=== PATIENT | male | born 1975 | race Caucasian/White ===

== ENCOUNTER 2025-02-09 13:24 | Outpatient (CLI) | payer OTHER, SELFPAY ==
--- NOTE | ~2025-02-09 | MR_ITS ---
EXAMINATION: MR brain/brain stem wo/w con DATE: 02/09/2025 14:25 CDT INDICATION: Hyperprolactinemia TECHNIQUE: Magnetic resonance imaging (MRI) of the brain and brainstem was performed without intravenous contrast. Sequences included sagittal and axial T1-weighted SE, axial diffusion-weighted FS SE, axial T2*-weighted GRE, axial T2-weighted FLAIR Propeller, and axial T2-weighted Propeller. Apparent diffusion coefficient (ADC) maps were created. COMPARISON: CT dated 08/22/2016 FINDINGS: The brain volume and ventricular system are within normal limits. The brain parenchymal signal intensity pattern and paige/white matter is normal and there is no evidence of hemorrhage, space occupying masses or infarctions. The flow signal voids of the major arterial structures about the [place] and within the major dural venous sinuses appear grossly unremarkable and patent. The seventh and eighth cranial nerve complexes are normal. The mid sagittal image demonstrates a normal craniovertebral junction and corpus callosum. The paranasal sinuses are grossly unremarkable. No abnormal pituitary mass. No abnormal contrast enhancement was appreciated. IMPRESSION: 1: NORMAL MRI OF THE BRAIN WITH AND WITHOUT CONTRAST. Reviewed, dictated and finalized at location O.
== END 2025-02-09 13:25 | disposition home or self-care (01) ==
PROVIDERS: PCP Family Medicine; Visit Provider Family Medicine
DX: E22.1 Hyperprolactinemia (principal)
CPT/HCPCS: 70553; A9577